=== PATIENT | male | born 1985 | race Caucasian/White ===

== ENCOUNTER 2021-05-25 20:19 | Emergency (ER) | payer OTHER ==
--- NOTE | 2021-05-25 20:23 | ERPHSYRPT ---
- History of Present Illness Time Seen by Provider: 05/25/21 20:23 Source: patient Exam Limitations: no limitations Physician History: This is a 35-year-old right-handed white male who accidentally cut himself with a knife while trying to cut a zip tie. Patient's last tetanus shot was in 2019. Timing/Duration: today Quality: painful Severity: mild Location: extremities (Right wrist dorsal aspect) Associated Symptoms: denies symptoms Allergies/Adverse Reactions: phenobarbital Allergy (Verified 05/25/21 20:23) Travel Risk - International Travel Have you traveled outside of the country in past 3 weeks: No - Coronavirus Screening Are you exhibiting any of the following symptoms?: No Close contact with a COVID-19 positive Pt in past 14-21 Days: No - Review of Systems Constitutional: No Symptoms Eyes: No Symptoms Ears, Nose, & Throat: No Symptoms Respiratory: No Symptoms Cardiac: No Symptoms Abdominal/Gastrointestinal: No Symptoms Genitourinary Symptoms: No Symptoms Musculoskeletal: No Symptoms Skin: Other (Laceration 1.5 cm right wrist dorsal aspect) Psychological: No Symptoms Endocrine: No Symptoms Hematologic/Lymphatic: No Symptoms, Easy Bruising Immunological/Allergic: No Symptoms All Other Systems: Reviewed and Negative - Past Medical History Pertinent Past Medical History: Yes - Past Surgical History Past Surgical History: Yes - Nursing Vital Signs Nursing Vital Signs: Initial Vital Signs Temperature 98.7 F 05/25/21 20:19 Pulse Rate 105 H 05/25/21 20:19 Respiratory Rate 20 05/25/21 20:19 Blood Pressure 122/87 05/25/21 20:19 O2 Sat by Pulse Oximetry 98 05/25/21 20:19 Pain Scale Pain Intensity 6 - Physical Exam General Appearance: no apparent distress, alert, anxiety, obese Eye Exam: PERRL/EOMI, eyes nml inspection Ears, Nose, Throat Exam: normal ENT inspection, moist mucous membranes Neck Exam: normal inspection, non-tender, supple, full range of motion Respiratory Exam: airway intact, No chest tenderness, No respiratory distress Gastrointestinal/Abdomen Exam: No tenderness Rectal Exam: not done Back Exam: normal inspection, normal range of motion, No CVA tenderness, No vertebral tenderness Extremity Exam: normal range of motion, pelvis stable, lacerations (1.5 cm axially oriented laceration right proximal wrist dorsal aspect. No active bleeding. Neurovascularly intact. No tendon involvement) Neurologic Exam: alert Skin Exam: laceration (See above extremity exam section) Lymphatic Exam: No adenopathy SpO2 Interpretation: normal O2 Delivery: Room Air Procedures - Laceration/Wound Repair Right Dorsal Wrist Time of Procedure: 20:45 Wound Location: Right, wrist Wound Length (cm): 1.5 Wound's Depth, Shape: superficial, linear Wound Explored: clean (Examination performed to the base in a bloodless field. No foreign body present) Irrigated: Yes Hibiclens Prep: Yes Wound Repaired With: [place] (3. Moncho used) Layer Closure?: No Progress: 05/25/21 20:53 Laceration repair site cleaned and dried. Thin layer of antibiotic ointment was placed overlying the laceration repair site. Bandage was placed over this. - Course Nursing assessment & vital signs reviewed: Yes - Progress Progress: improved Counseled pt/family regarding: diagnosis, need for follow-up - Departure Departure Disposition: Home Clinical Impression: Laceration of right wrist Condition: Stable Critical Care Time: No Referrals: NIR OSORIO [Primary Care Provider] - Follow up/PCP as directed Additional Instructions: Keep the laceration repair site clean and dry for 24 hours. After 24 hours, may remove the bandage and then wash daily with soap and water. Blot dry use a hairdryer. After washing, place a thin layer of antibiotic ointment of choice to the site and cover again with bandage. Use Tylenol and ibuprofen for pain control. Staple removal in 8 to 10 days. Prescriptions: Hydrocodone/APAP 5/325 [[place] 5/325 mg] 1 each PO Q8H PRN PRN #4 tablet MDD 3 PRN Reason: Pain
[2021-05-25] MEDS ORDERED: BACIGUENT PACKET ONE (20:48)
[2021-05-25] MEDS ORDERED: NORCO 5/325 MG PO ONE ×2 (20:58)
[2021-05-25] MEDS ORDERED: NORCO 5/325 MG ONE (21:00)
[2021-05-25 21:08] VITALS: BP 122/88; PULSE 93; O2SAT 97
== END 2021-05-25 21:15 | disposition home or self-care (01) ==
LOC: ED 20:19
DX: S61.511A Laceration without foreign body of right wrist, initial encounter (principal); W26.0XXA Contact with knife, initial encounter; Z79.891 Long term (current) use of opiate analgesic
CPT/HCPCS: 12001; 99283; A9270-GY

== ENCOUNTER 2021-06-27 22:29 | Emergency (ER) | payer OTHER ==
[2021-06-27] MEDS ORDERED: OXYCODONE-ACETAMINOPHEN 10-325 PO STA (23:00)
[2021-06-27] MEDS ORDERED: Augmentin 875-125 Tablet PO ONE (23:00)
[2021-06-27] MEDS ORDERED: Augmentin 875-125 Tablet ONE (23:04)
[2021-06-27] MEDS ORDERED: OXYCODONE-ACETAMINOPHEN 10-325 ONE (23:04)
--- NOTE | 2021-06-27 23:07 | ERPHSYRPT ---
- History of Present Illness Time Seen by Provider: 06/27/21 22:41 Source: patient Exam Limitations: no limitations Patient Subjective Stated Complaint: pt states he has had constant pain in his rt lower mouth for 5 days. Triage Nursing Assessment: pt alert and oriented, answers questions approp. pt ambulatory with steady gait noted. respirations nonlabored.broken tooth and poor dentition noted . Physician History: 35 years old with multiple patent lesions presented to the ER with 5-day history of increasing pain especially in the left lower jaw of moderate to severe intensity sharp nature, partial relief with [id number] medications. Patient has appointment with his dentist after tomorrow. No fever or chills reported. Timing/Duration: gradual onset, days (5) Severity: severe ENT Location: dental Prearrival Treatment: over the counter meds Associated Symptoms: facial pain/swelling, jaw pain, tooth pain Allergies/Adverse Reactions: phenobarbital Allergy (Verified 06/27/21 22:53) Hx Tetanus, Diphtheria Vaccination/Date Given: Yes Hx Influenza Vaccination/Date Given: No Hx Pneumococcal Vaccination/Date Given: No Immunizations Up to Date: Yes Travel Risk - International Travel Have you traveled outside of the country in past 3 weeks: No - Coronavirus Screening Are you exhibiting any of the following symptoms?: No Close contact with a COVID-19 positive Pt in past 14-21 Days: No - Vaccine Status Have you recieved a Covid-19 vaccination: No - Review of Systems Constitutional: No Symptoms Eyes: No Symptoms Ears, Nose, & Throat: Mouth Swelling Respiratory: No Symptoms Cardiac: No Symptoms Abdominal/Gastrointestinal: No Symptoms Musculoskeletal: No Symptoms Skin: No Symptoms Psychological: No Symptoms Endocrine: No Symptoms Hematologic/Lymphatic: No Symptoms - Past Medical History Pertinent Past Medical History: Yes Respiratory History: COPD, Sleep Apnea - Past Surgical History Past Surgical History: Yes - Social History Smoking Status: Current every day smoker How long have you smoked: 10 yrs Exposure to second hand smoke: No Drug Use: none Patient Lives Alone: No - Nursing Vital Signs Nursing Vital Signs: Initial Vital Signs Temperature 97.8 F 06/27/21 22:44 Pulse Rate 102 H 06/27/21 22:44 Respiratory Rate 16 06/27/21 22:44 Blood Pressure 166/105 06/27/21 22:44 O2 Sat by Pulse Oximetry 99 06/27/21 22:44 Pain Scale Pain Intensity 10 - Physical Exam General Appearance: no apparent distress, alert Eye Exam: bilateral eye: normal inspection, PERRL Ear Exam: bilateral ear: auricle normal, canal normal, TM normal Nasal Exam: normal inspection Throat Exam: normal, pharynx normal, dental tenderness (Left lower premolar and molar area with gingival swelling. Periodontal disease.) Neck Exam: normal inspection, non-tender, supple, full range of motion, trachea midline Cardiovascular/Respiratory Exam: normal breath sounds, regular rate/rhythm Neurologic Exam: alert, oriented x 3, cooperative, sustainability project coordinator II-XII nml as tested Skin Exam: normal color SpO2 Interpretation: normal SpO2: 99 O2 Delivery: Room Air Ordered Tests: Medication Summary Discontinued Medications Generic Name Dose Route Start Last Admin Trade Name Stefan PRN Reason Stop Dose Admin Amoxicillin/Clavulanate Potassium 875 mg 06/27/21 23:00 06/27/21 23:05 Amox Tr/Potassium Clavulanate 875 Mg Tablet PO 06/27/21 23:01 875 mg STAT ONE Administration Amoxicillin/Clavulanate Potassium Confirm 06/27/21 23:04 Amox Tr/Potassium Clavulanate 875 Mg Tablet Administered 06/27/21 23:05 Dose 875 mg .ROUTE .STK-MED ONE Oxycodone/Acetaminophen 1 tab 06/27/21 23:00 06/27/21 23:05 Oxycodone / Apap 10/325 Mg 1 Tablet PO 06/27/21 23:01 1 tab STAT STA Administration Oxycodone/Acetaminophen Confirm 06/27/21 23:04 Oxycodone / Apap 10/325 Mg 1 Tablet Administered 06/27/21 23:05 Dose 1 tab .ROUTE .STK-MED ONE Oxycodone/Acetaminophen 2 tab 06/27/21 23:11 06/27/21 23:33 Oxycodone Hcl/Apap 5 Mg/325 Mg Tablet PO 06/27/21 23:12 2 tab SENT HOME W/ PATIENT STA Administration Oxycodone/Acetaminophen Confirm 06/27/21 23:30 Oxycodone Hcl/Apap 5 Mg/325 Mg Tablet Administered 06/27/21 23:31 Dose 2 tab .ROUTE .STK-MED ONE - Progress Progress: improved Progress Note: 06/27/21 given pain medication and started on Augmentin. Outpatient dental follow-up recommended as scheduled day after tomorrow. Counseled pt/family regarding: diagnosis, need for follow-up - Departure Departure Disposition: Home Clinical Impression: Dental infection Condition: Stable Critical Care Time: No Referrals: DOCTOR,NO FAMILY [Primary Care Provider] - Follow up/PCP as directed Instructions: Tooth Abscess (DC), Dental Pain (DC) Additional Instructions: Keep appointment with your dentist tomorrow as scheduled. Take pain medications as needed. Return to ER for worsening pain, swelling, fever chills etc. Prescriptions: Amox Tr/Potass Clav. 875 mg [Augmentin 875-125 Tablet] 875 mg PO BID #14 tablet
[2021-06-27] MEDS ORDERED: PERCOCET TABLET 5/325MG PO STA (23:11)
[2021-06-27] MEDS ORDERED: PERCOCET TABLET 5/325MG ONE (23:30)
[2021-06-28] VITALS: BP 128/67; PULSE 100; O2SAT 98
== END 2021-06-27 23:58 | disposition home or self-care (01) ==
LOC: ED 22:29
DX: K04.7 Periapical abscess without sinus (principal); J44.9 Chronic obstructive pulmonary disease, unspecified; Z72.0 Tobacco use
CPT/HCPCS: 99283; A9270-GY

== ENCOUNTER 2022-09-27 13:43 | Emergency (ER) | payer OTHER ==
[2022-09-27] MEDS ORDERED: XYLOCAINE 1% HCL 20 ML MDV ONE ×2 (13:52→13:55)
[2022-09-27] MEDS ORDERED: XYLOCAINE 1% HCL 20 ML MDV IJ ONE (14:16)
[2022-09-27] MEDS ORDERED: BACIGUENT PACKET TP ONE (14:16)
[2022-09-27] MEDS ORDERED: BACIGUENT PACKET ONE (14:17)
[2022-09-27 14:19] VITALS: BP 116/81; PULSE 89; O2SAT 96
--- NOTE | 2022-09-27 14:22 | ERPHSYRPT ---
- History of Present Illness Time Seen by Provider: 09/27/22 13:55 Source: patient, family Exam Limitations: no limitations Patient Subjective Stated Complaint: Patient cut himself with a boxknife at home just prior to coming into the ER. Cut is to patient's left thumb. Triage Nursing Assessment: Patient arrived in ER ambulating without difficulties. No SOB. Alert and oriented. Ribbon tied around thumb with gauze. Gauze has a small amount of bright red blood on it. Gauze removed and area cleansed with sterile water and hibiclens. 3.2cm laceration/cut. Physician History: This is a right-handed 36-year-old white male patient who accidentally cut his left thumb with a razor. His gave additional history. Patient states his tetanus status is up-to-date. This occurred prior to arrival and there were [address]. Timing/Duration: today Quality: painful Severity: mild Location: hands (To moderate left hand distal thumb) Possible Causes: other (Accidental laceration) Associated Symptoms: denies symptoms Allergies/Adverse Reactions: phenobarbital Allergy (Verified 09/27/22 13:52) Home Medications: No Reportable Medications [No Reported Medications] 09/27/22 [History] Hx Tetanus, Diphtheria Vaccination/Date Given: Yes Hx Influenza Vaccination/Date Given: No Hx Pneumococcal Vaccination/Date Given: No Immunizations Up to Date: Yes Travel Risk - International Travel Have you traveled outside of the country in past 3 weeks: No - Coronavirus Screening Are you exhibiting any of the following symptoms?: No Close contact with a COVID-19 positive Pt in past 14-21 Days: No - Vaccine Status Have you recieved a Covid-19 vaccination: No - Review of Systems Constitutional: No Symptoms Eyes: No Symptoms Ears, Nose, & Throat: No Symptoms Respiratory: No Symptoms Cardiac: No Symptoms Abdominal/Gastrointestinal: No Symptoms Genitourinary Symptoms: No Symptoms Musculoskeletal: No Symptoms, Other (Left thumb neurovascularly intact, tendons intact) Skin: Other (Skin laceration distal left thumb) Neurological: No Symptoms Psychological: No Symptoms Endocrine: No Symptoms Hematologic/Lymphatic: No Symptoms Immunological/Allergic: No Symptoms All Other Systems: Reviewed and Negative - Past Medical History Pertinent Past Medical History: Yes Respiratory History: COPD, Sleep Apnea - Past Surgical History Past Surgical History: Yes - Social History Smoking Status: Current every day smoker How long have you smoked: 15 yrs Exposure to second hand smoke: No Drug Use: none Patient Lives Alone: No - Nursing Vital Signs Nursing Vital Signs: Initial Vital Signs Temperature 97.4 F 09/27/22 13:53 Respiratory Rate 20 09/27/22 13:53 Pain Scale Pain Intensity 7 - Physical Exam General Appearance: no apparent distress, alert, anxiety, obese Eye Exam: PERRL/EOMI, eyes nml inspection Ears, Nose, Throat Exam: normal ENT inspection, moist mucous membranes Neck Exam: normal inspection, non-tender, supple, full range of motion Respiratory Exam: airway intact, No chest tenderness, No respiratory distress Gastrointestinal/Abdomen Exam: No tenderness Rectal Exam: not done Back Exam: normal inspection, normal range of motion, No CVA tenderness, No vertebral tenderness Extremity Exam: normal range of motion, pelvis stable, lacerations (2 cm laceration distal left thumb. Mild oozing of venous skin edge blood from the s ite. Neurovascularly intact. Tendon is intact. No foreign body) Neurologic Exam: alert, oriented x 3, cooperative, automotive sales executive II-XII nml as tested, normal mood/affect, nml cerebellar function, nml station & gait, sensation nml Skin Exam: laceration (See above extremity exam section) Lymphatic Exam: No adenopathy SpO2 Interpretation: normal O2 Delivery: Room Air Procedures - Laceration/Wound Repair Left Distal Finger Time of Procedure: 14:00 Wound Location: Left, hand (Distal thumb) Wound Length (cm): 2 Wound's Depth, Shape: linear, into subcut Wound Explored: clean (No foreign body noted. Examination was performed and below this field to the base.) Irrigated: Yes Hibiclens Prep: Yes Anesthesia: 1% Lidocaine Volume Anesthetic (ccs): 3 Wound Repaired With: sutures Suture Size/Type: 4-0 Number of Sutures: 4 Layer Closure?: No Sterile Dressing Applied?: Yes - Course Nursing assessment & vital signs reviewed: Yes Ordered Tests: Medication Summary Discontinued Medications Generic Name Dose Route Start Last Admin Trade Name Freq PRN Reason Stop Dose Admin Lidocaine HCl Confirm 09/27/22 13:52 Lidocaine Hcl 1% 20 Ml Mdv 20 Ml Ml Administered 09/27/22 13:53 Dose 10 ml .ROUTE .[facility] ONE Lidocaine HCl Confirm 09/27/22 13:55 Lidocaine Hcl 1% 20 Ml Mdv 20 Ml Ml Administered 09/27/22 13:56 Dose 5 ml .ROUTE .[employer]-MED ONE - Progress Progress: improved Progress Note: 09/27/22 14:20 This patient's medical issue is 1 of low complexity. No radiographic studies or laboratory or evaluation was necessary. The patient is neurovascularly intact and the tendon function is intact. See procedure note. Patient is being disc harged to home with pressure dressing in place. Instructions are to keep the bandage in place for 24 hours. After 24 hours, remove dressing, wash the site daily thereafter blot dry use a hairdryer to dry the site and then a thin layer of antibiotic and read bandage each day. Sutures removal in 7 to 10 days. Tylenol and ibuprofen for pain control. Counseled pt/family regarding: diagnosis, need for follow-up Medical Desision Making - Independent Historian Additional History obtained from: Spouse - Discussion of managment Agreed on:: Treatment plan, need for follow-up - Risk of complications Minimal Risk: Minimal risk of morbidity - Departure Departure Disposition: Home Clinical Impression: Thumb laceration Condition: Stable Critical Care Time: No Referrals: DOCTOR,NO FAMILY [Primary Care Provider] - Follow up/PCP as directed Additional Instructions: Keep current pressure dressing in place until the evening of 09/28/2022. At that time you may remove the dressing and wash the site daily thereafter. After each washing, blot dry use a hairdryer to dry the repair line. Reapply thin layer of antibiotic ointment of choice. Cover the site with a bandage after each washing and drying and application of antibiotic ointment. Suture removal in 7 to 10 days. Use Tylenol and ibuprofen for pain control.
== END 2022-09-27 14:35 | disposition home or self-care (01) ==
LOC: ED 13:43
DX: S61.012A Laceration without foreign body of left thumb without damage to nail, initial encounter (principal); W26.0XXA Contact with knife, initial encounter; J44.9 Chronic obstructive pulmonary disease, unspecified; Z28.310 Unvaccinated for COVID-19; Z72.0 Tobacco use
CPT/HCPCS: 12001; 96372; 99283; A9270-GY

== ENCOUNTER 2023-03-11 00:27 | Emergency (ER) | payer MEDICAID, OTHER ==
[2023-03-11] MEDS ORDERED: TORAdol 30 mg Injection IM ONE (00:37)
[2023-03-11] MEDS ORDERED: Augmentin 875-125 Tablet PO ONE (00:41)
--- NOTE | 2023-03-11 00:43 | ERPHSYRPT ---
- History of Present Illness Time Seen by Provider: 03/11/23 00:33 Source: patient Exam Limitations: no limitations Physician History: 37-year-old male with history of bad dentition with caries and broken teeth with cavities presented in the ER with chief complaint of left upper lateral incisor area cavity with gingival swelling pain for the last 4 to 5 days. He has been using [id number] stuff including clove oil/ibuprofen with no significant relief. No fever or chills reported. Pain is more with swallowing and chewing food. Has appointment with dentist early next month. Allergies/Adverse Reactions: phenobarbital Allergy (Verified 03/11/23 00:30) Hx Tetanus, Diphtheria Vaccination/Date Given: Yes Hx Influenza Vaccination/Date Given: No Hx Pneumococcal Vaccination/Date Given: No Travel Risk - Vaccine Status Have you recieved a Covid-19 vaccination: No - Review of Systems Constitutional: No Symptoms Eyes: No Symptoms Ears, Nose, & Throat: Mouth Swelling, Loose Teeth Respiratory: No Symptoms Cardiac: No Symptoms Neurological: No Symptoms Endocrine: No Symptoms Hematologic/Lymphatic: No Symptoms - Past Medical History Pertinent Past Medical History: Yes Respiratory History: COPD, Sleep Apnea - Past Surgical History Past Surgical History: Yes - Social History Smoking Status: Current every day smoker How long have you smoked: 15 yrs Exposure to second hand smoke: No Drug Use: none Patient Lives Alone: No - Physical Exam General Appearance: no apparent distress, alert Eye Exam: bilateral eye: normal inspection, PERRL, EOMI Ear Exam: bilateral ear: auricle normal Nasal Exam: normal inspection Throat Exam: normal, pharynx normal, dental tenderness (Upper left lateral incisor broken with gingival swelling and tenderness. No fluctuation) Neck Exam: normal inspection, non-tender, supple, full range of motion Cardiovascular/Respiratory Exam: normal breath sounds, regular rate/rhythm Neurologic Exam: alert, oriented x 3, cooperative, playground attendant II-XII nml as tested Skin Exam: normal color SpO2 Interpretation: normal SpO2: 96 O2 Delivery: Room Air Ordered Tests: Medication Summary Discontinued Medications Generic Name Dose Route Start Last Admin Trade Name Freq PRN Reason Stop Dose Admin Ketorolac Tromethamine 30 mg 03/11/23 00:37 Ketorolac Tromethamine 30 Mg/Ml Inj IM 03/11/23 00:38 STAT ONE - Progress Progress: improved Progress Note: 03/11/23 01:10 37-year-old is evaluated for left upper lateral incisor pain with loosening and gingival swelling for the last 4 to 5 days with no significant improvement to [id number] pain medications. He is given Toradol for symptomatic relief. He has no fluctuation. Started on Augmentin. Outpatient follow-up recommended. Counseled pt/family regarding: diagnosis, need for follow-up - Departure Departure Disposition: Home Clinical Impression: Dental infection Condition: Stable Critical Care Time: No Referrals: DOCTOR,NO FAMILY [Primary Care Provider] - Follow up/PCP as directed Instructions: Tooth Decay, Adult (DC), Tooth Abscess (DC) Additional Instructions: Follow-up with your primary dentist for reevaluation. Take Tylenol/diclofenac as needed. Do not take ibuprofen/Aleve while taking diclofenac. Return to ER for intractable pain swelling/fever chills etc. Prescriptions: Amox Tr/Potass Clav. 875 mg [Augmentin 875-125 Tablet] 875 mg PO BID #14 tablet Diclofenac Sodium 50 mg PO TID PRN 7 Days #20 tab PRN Reason: Pain
[2023-03-11 00:44] VITALS: TEMP 97.3; O2SAT 96
[2023-03-11] MEDS ORDERED: Augmentin 875-125 Tablet ONE (00:44)
[2023-03-11] MEDS ORDERED: TORAdol 30 mg Injection ONE (00:44)
[2023-03-11 00:45] VITALS: BP 124/91; PULSE 94; RESP 20
== END 2023-03-11 01:11 | disposition home or self-care (01) ==
LOC: ED 00:27
DX: K04.7 Periapical abscess without sinus (principal); K08.89 Other specified disorders of teeth and supporting structures; Z28.310 Unvaccinated for COVID-19; Z72.0 Tobacco use
CPT/HCPCS: 96372; 99283; J1885; A9270-GY

== ENCOUNTER 2023-05-27 15:00 | Emergency (ER) | payer MEDICAID, OTHER ==
[2023-05-27 15:17] VITALS: TEMP 98
[2023-05-27] MEDS ORDERED: Sodium Chloride 0.9% 1000 ML 1,000 ML IV SCH (16:00)
--- NOTE | 2023-05-27 16:02 | ERPHSYRPT ---
- History of Present Illness Time Seen by Provider: 05/27/23 15:30 Source: patient Exam Limitations: no limitations Patient Subjective Stated Complaint: Pt states "12 days ago I started to have what felt like a jennifer horse in my right calf and I went to [place] 9 days ago and they did a bunch of tests and said nothing was there and gave me flexeril but it is worse and now my leg is swollen." Triage Nursing Assessment: Pt presented alert and oriented X 3, skin pwd. Pt ambulates with a limp . Pt right calf larger than left, CSM X 4. right lower extremity warm with pulse detected. Physician History: Patient is a 37-year-old male presents to our ED for evaluation of worsening pain to right leg. Patient states pain developed approximately 12 days ago. 9 days ago patient went to [facility]. Patient states they completed a complete workup. Patient was discharged on Flexeril. However patient states her symptoms have gotten progressively worse. He feels increasing pressure at his right lower leg. Patient feels the leg is warm. No trauma no fever. Patient states a right lower extremity ultrasound was negative at that time. Patient states otherwise healthy. He has no significant past medical history. Patient voices no other complaints or concerns at this time. Portions of this note were created with voice recognition technology. There may be grammatical, spelling, punctuation or sound alike errors Timing/Duration: day(s) (12 days ago) Severity: moderate Modifying Factors: Improves With: nothing Associated Symptoms: denies symptoms Allergies/Adverse Reactions: phenobarbital Allergy (Verified 03/11/23 00:30) Home Medications: No Reportable Medications [No Reported Medications] 05/27/23 [History] Hx Tetanus, Diphtheria Vaccination/Date Given: Yes Hx Influenza Vaccination/Date Given: No Hx Pneumococcal Vaccination/Date Given: No Immunizations Up to Date: No Travel Risk - International Travel Have you traveled outside of the country in past 3 weeks: No - Coronavirus Screening Are you exhibiting any of the following symptoms?: No Close contact with a COVID-19 positive Pt in past 14-21 Days: No - Vaccine Status Have you recieved a Covid-19 vaccination: No - Review of Systems Constitutional: No Symptoms, No Fever, No Chills Eyes: No Symptoms Ears, Nose, & Throat: No Symptoms Respiratory: No Symptoms, No Cough, No Dyspnea Cardiac: No Symptoms, No Chest Pain, No Edema, No Syncope Abdominal/Gastrointestinal: No Symptoms, No Abdominal Pain, No Nausea, No Vomiting, No Diarrhea Genitourinary Symptoms: No Symptoms, No Dysuria Musculoskeletal: No Symptoms, No Back Pain, No Neck Pain Skin: No Symptoms, No Rash Neurological: No Symptoms, No Dizziness, No Focal Weakness, No Sensory Changes Psychological: No Symptoms Endocrine: No Symptoms Hematologic/Lymphatic: No Symptoms All Other Systems: Reviewed and Negative - Past Medical History Pertinent Past Medical History: Yes Neurological History: No Pertinent History ENT History: No Pertinent History Cardiac History: No Pertinent History Respiratory History: COPD, Sleep Apnea Endocrine Medical History: No Pertinent History Musculoskeletal History: No Pertinent History GI Medical History: No Pertinent History History: No Pertinent History Psycho-Social History: Depression Male Reproductive Disorders: No Pertinent History - Past Surgical History Past Surgical History: Yes Neuro Surgical History: No Pertinent History Cardiac: No Pertinent History Respiratory: No Pertinent History Gastrointestinal: No Pertinent History Genitourinary: No Pertinent History Musculoskeletal: No Pertinent History Male Surgical History: No Pertinent History - Social History Smoking Status: Current every day smoker How long have you smoked: 15 yrs Exposure to second hand smoke: Yes Drug Use: none Patient Lives Alone: Yes - Nursing Vital Signs Nursing Vital Signs: Initial Vital Signs Temperature 98.0 F 05/27/23 15:12 Pulse Rate 114 H 05/27/23 15:12 Respiratory Rate 20 05/27/23 15:12 Blood Pressure 148/97 05/27/23 15:12 O2 Sat by Pulse Oximetry 100 05/27/23 15:12 Pain Scale Pain Intensity 8 - Physical Exam General Appearance: no apparent distress, alert Eye Exam: PERRL/EOMI, eyes nml inspection Ears, Nose, Throat Exam: normal ENT inspection, TMs normal, pharynx normal, moist mucous membranes Neck Exam: normal inspection, non-tender, supple, full range of motion Respiratory Exam: normal breath sounds, lungs clear, airway intact, No respiratory distress Cardiovascular Exam: regular rate/rhythm, normal heart sounds, normal peripheral pulses Gastrointestinal/Abdomen Exam: soft, normal bowel sounds, No tenderness, No mass Back Exam: normal inspection, normal range of motion, No CVA tenderness, No vertebral tenderness Extremity Exam: normal inspection, normal range of motion, pelvis stable Neurologic Exam: alert, oriented x 3, cooperative, normal mood/affect, sensation nml, No motor deficits Skin Exam: normal color, warm, dry, No rash Lymphatic Exam: No adenopathy SpO2 Interpretation: normal SpO2: 100 O2 Delivery: Room Air - Course Nursing assessment & vital signs reviewed: Yes - CT Exams Lower Extremity CT Interpretation: Discussed w/radiologist (Normal right lower extremity without contrast) - Radiology Ultrasound Exam Venous Lower Extremity Ultrasound: tele radiology report (Right lower extremity negative for DVT) Ordered Tests: Active Orders 24 hr Category Date Time Status Financial Analyst STAT Care 05/27/23 15:55 Active IV Insertion STAT Care 05/27/23 15:55 Active Pulse Oximetry (ED) STAT Care 05/27/23 15:55 Active LOWER EXTREMITY WITH CONTRAST [CT] Stat Exams 05/27/23 16:10 Taken VENOUS UNILAT/LIMITED EXTREMIT [US] Stat Exams 05/27/23 15:56 Completed BLOOD CULTURE Stat Lab 05/27/23 16:34 Received CBC W DIFF Stat Lab 05/27/23 16:20 Completed CK (IN-HOUSE) [CK-Creatinine Phosphokinase] Stat Lab 05/27/23 15:00 Completed CMP Stat Lab 05/27/23 16:20 Completed Lactic Acid Stat Lab 05/27/23 16:49 Completed UA W/RFX UR CULTURE Stat Lab 05/27/23 15:55 Ordered Medication Summary Generic Name Dose Route Start Last Admin Trade Name Freq PRN Reason Stop Dose Admin Sodium Chloride 1,000 mls @ 100 mls/hr 05/27/23 16:00 05/27/23 16:55 Sodium Chloride 0.9% 1000 Ml IV 06/26/23 15:59 100 mls/hr .Q10H VALENTIN Administration Discontinued Medications Generic Name Dose Route Start Last Admin Trade Name Freq PRN Reason Stop Dose Admin Morphine Sulfate 4 mg 05/27/23 17:01 05/27/23 17:11 Morphine Sulfate 4 Mg/Ml Injection IV 05/27/23 17:02 4 mg STAT ONE Administration Morphine Sulfate Confirm 05/27/23 17:06 Morphine Sulfate 4 Mg/Ml Injection Administered 05/27/23 17:07 Dose 4 mg .ROUTE .STK-MED ONE Ondansetron HCl 4 mg 05/27/23 17:01 05/27/23 17:13 Ondansetron Hcl 4 Mg/2 Ml Vial IV 05/27/23 17:02 4 mg STAT ONE Administration Ondansetron HCl Confirm 05/27/23 17:05 Ondansetron Hcl 4 Mg/2 Ml Vial Administered 05/27/23 17:06 Dose 4 mg .ROUTE .STK-MED ONE Lab/Rad Data: Laboratory Result Diagrams 05/27/23 16:20 05/27/23 16:20 Laboratory Results 05/27/23 05/27/23 05/27/23 Range/Units 16:49 16:20 16:20 WBC 6.3 (4.0-10.5) x10^3/uL RBC 4.77 (4.1-5.6) x10^6/uL Hgb 13.9 (12.5-18.0) g/dL Hct 42.1 (42-50) % MCV 88.3 (78-100) fL MCH 29.1 (26-32) pg MCHC 33.0 (32-36) g/dL RDW 12.2 (11.5-14.0) % Plt Count 244 (150-450) x10^3/uL MPV 9.9 (7.5-11.0) fL Gran % 49.3 (36.0-66.0) % Immature Gran % (Auto) 0.3 (0.00-0.4) % Nucleat RBC Rel Count 0.0 (0.00-0.1) % Eos # (Auto) 0.19 (0-0.5) x10^3/uL Immature Gran # (Auto) 0.02 (0.00-0.03) x10^3u/L Absolute Lymphs (auto) 2.23 (1.0-4.6) x10^3/uL Absolute Monos (auto) 0.71 (0.0-1.3) x10^3/uL Absolute Nucleated RBC 0.00 (0.00-0.01) x10^3u/L Lymphocytes % 35.5 (24.0-44.0) % Monocytes % 11.3 (0.0-12.0) % Eosinophils % 3.0 (0.00-5.0) % Basophils % 0.6 (0.0-0.4) % Absolute Granulocytes 3.09 (1.4-6.9) x10^3/uL Basophils # 0.04 (0-0.4) x10^3/uL Sodium 137 (137-145) mmol/L Potassium 3.8 (3.5-5.1) mmol/L Chloride 104 (98-107) mmol/L Carbon Dioxide 27 (22-30) mmol/L Anion Gap 10.3 (5-15) MEQ/L BUN 15 (9-20) mg/dL Creatinine 0.80 (0.66-1.25) mg/dL Estimated GFR 118.4 ML/MIN Glucose 87 (74-106) mg/dL Lactic Acid 1.1 (0.4-2.0) Calcium 8.7 (8.4-10.2) mg/dL Total Bilirubin 0.50 (0.2-1.3) mg/dL AST 31 (17-59) U/L ALT 38 (0-50) U/L Alkaline Phosphatase 61 (38-126) U/L Creatine Kinase (55-170) U/L Serum Total Protein 7.7 (6.3-8.2) g/dL Albumin 4.0 (3.5-5.0) g/dL 05/27/23 Range/Units 15:00 WBC (4.0-10.5) x10^3/uL RBC (4.1-5.6) x10^6/uL Hgb (12.5-18.0) g/dL Hct (42-50) % MCV (78-100) fL MCH (26-32) pg MCHC (32-36) g/dL RDW (11.5-14.0) % Plt Count (150-450) x10^3/uL MPV (7.5-11.0) fL Gran % (36.0-66.0) % Immature Gran % (Auto) (0.00-0.4) % Nucleat RBC Rel Count (0.00-0.1) % Eos # (Auto) (0-0.5) x10^3/uL Immature Gran # (Auto) (0.00-0.03) x10^3u/L Absolute Lymphs (auto) (1.0-4.6) x10^3/uL Absolute Monos (auto) (0.0-1.3) x10^3/uL Absolute Nucleated RBC (0.00-0.01) x10^3u/L Lymphocytes % (24.0-44.0) % Monocytes % (0.0-12.0) % Eosinophils % (0.00-5.0) % Basophils % (0.0-0.4) % Absolute Granulocytes (1.4-6.9) x10^3/uL Basophils # (0-0.4) x10^3/uL Sodium (137-145) mmol/L Potassium (3.5-5.1) mmol/L Chloride (98-107) mmol/L Carbon Dioxide (22-30) mmol/L Anion Gap (5-15) MEQ/L BUN (9-20) mg/dL Creatinine (0.66-1.25) mg/dL Estimated GFR ML/MIN Glucose (74-106) mg/dL Lactic Acid (0.4-2.0) Calcium (8.4-10.2) mg/dL Total Bilirubin (0.2-1.3) mg/dL AST (17-59) U/L ALT (0-50) U/L Alkaline Phosphatase (38-126) U/L Creatine Kinase 78 (55-170) U/L Serum Total Protein (6.3-8.2) g/dL Albumin (3.5-5.0) g/dL - Progress Progress: improved Progress Note: 37-year-old male presents to our ED with progressive right lower extremity pain. Patient was seen in outside hospital. Workup negative. Workup in our ED essentially unremarkable. At this point we are concerned for possible compartment syndrome. Although patient's involved extremities currently neurovascular tact distally. Compartments are soft cap refill less than 2 seconds. Patient will be transferred for orthopedic evaluation. Plan of care discussed with patient. Patient agrees to transfer to outside hospital for further evaluation and treatment. Portions of this note were created with voice recognition technology. There may be grammatical, spelling, punctuation or sound alike errors Complexity of problem addressed is moderate acute complicated No critical care time Complex of data reviewed and analyzed is extensive. Test ordered test reviewed. Results analyzed and correlated clinically. Management discussed with orthopedics who accepts transfer. Risk complication and or risk of morbidity/mortality of patient management is high. Patient will be transferred to higher level of care. Vital stable. Time spent to transfer patient is approximately 20 minutes. Plan of care established for shared decision making. No social determinants of health present impede follow-up. Portions of this note were created with voice recognition technology. There may be grammatical, spelling, punctuation or sound alike errors 05/27/23 18:[address] [facility] at 7:26 PM 05/27/23 19:27 Counseled pt/family regarding: lab results, diagnosis, rad results - Departure Departure Disposition: Transfer Clinical Impression: Compartment syndrome, Leg pain Condition: Stable Critical Care Time: No Referrals: JENNIFER CARBALLO [Primary Care Provider] - Follow up/PCP as directed
[2023-05-27 16:49] LABS: Absolute Neutrophil Ct (ANC) 3.09 x10^3/uL (1.4-6.9); BASOPHIL % 0.6 % (0.0-0.4); Basophil (Absolute #) 0.04 x10^3/uL (0-0.4); Eosinophil (Absolute #) 0.19 x10^3/uL (0-0.5); Hematocrit 42.1 % (42-50); Hemoglobin 13.9 g/dL (12.5-18.0); IMMATURE GRAN # 0.02 x10^3u/L (0.00-0.03); IMMATURE GRAN % 0.3 % (0.00-0.4); Lymphocyte (Absolute #) 2.23 x10^3/uL (1.0-4.6); Lymphocytes % 35.5 % (24.0-44.0); Mean Cell Volume 88.3 fL (78-100); Mean Corpuscular Hemoglobin 29.1 pg (26-32); Mean Platelet Volume 9.9 fL (7.5-11.0); Monocyte (Absolute #) 0.71 x10^3/uL (0.0-1.3); Monocytes % 11.3 % (0.0-12.0); Neutrophil % 49.3 % (36.0-66.0); Platelet Count 244 x10^3/uL (150-450); Red Blood Count 4.77 x10^6/uL (4.1-5.6); Red Cell Distribution Width 12.2 % (11.5-14.0); White Blood Count 6.3 x10^3/uL (4.0-10.5)
[2023-05-27] MEDS ORDERED: Sodium Chloride 0.9% 1000 ML 1,000 ML ONE (16:53)
[2023-05-27] MEDS ORDERED: Zofran 4 MG/2 ML VIAL IV ONE (17:01)
[2023-05-27] MEDS ORDERED: MORPHINE SULFATE 4 MG INJ IV ONE (17:01)
[2023-05-27 17:05] LABS: ANION GAP 10.3 MEQ/L (5-15); BILIRUBIN,TOTAL 0.5 mg/dL (0.2-1.3); Calcium 8.7 mg/dL (8.4-10.2); Creatinine 1 0.8 mg/dL (0.66-1.25); EST GLOMERULAR FILTRATION RATE 118.4 ML/MIN; Potassium 3.8 mmol/L (3.5-5.1); Total Protein 7.7 g/dL (6.3-8.2)
[2023-05-27] MEDS ORDERED: Zofran 4 MG/2 ML VIAL ONE (17:05)
[2023-05-27] MEDS ORDERED: MORPHINE SULFATE 4 MG INJ ONE (17:06)
--- NOTE | 2023-05-27 17:22 | XRAY ---
Indication: Pain. Two-dimensional sonogram and color Doppler imaging of the major venous vessels of the right leg performed. Comparison: None No thrombus seen in the examined deep venous vessels of the right leg including greater saphenous vein. Veins demonstrate normal compressibility. Venous waveforms are normal with and without augmentation. Impression: Right leg negative for DVT.
[2023-05-27 19:00] VITALS: O2SAT 100
[2023-05-27 19:34] VITALS: BP 151/99; PULSE 112; RESP 18
--- NOTE | 2023-05-28 08:38 | XRAY ---
Indication: Right tibia fibula swelling. Abscess. Multiple contiguous axial images obtained through the right lower leg using 80 cc Isovue 370 contrast. Comparison: None Lower leg demonstrates mild subcutaneous soft tissue swelling without focal solid/cystic mass or abnormal fluid collection. Deep musculature unremarkable. Major arteries are normal in course and caliber. Popliteal vein demonstrates nonoccluding thrombi. No acute fracture, dislocation, or suspicious bony lesions. Impression: Nonoccluding DVT popliteal vein. Comment: DVT not reported on initial preliminary interpretation. Telephone report was given to Dr. Webb at 0833 hrs. on May 28, 2023.
== END 2023-05-27 20:01 | disposition short-term general hospital (02) ==
LOC: ED 15:00
DX: T79.A21A Traumatic compartment syndrome of right lower extremity, initial encounter (principal); M79.604 Pain in right leg; I82.431 Acute embolism and thrombosis of right popliteal vein; Z28.310 Unvaccinated for COVID-19; Z72.0 Tobacco use
CPT/HCPCS: 36000; 36415; 73701; 80053; 82550; 83605; 85025; 87040; 93041; 93971; 94760; 96374; 96375; 99285; J2270; J2405

== ENCOUNTER 2023-12-20 12:07 | Emergency (ER) | payer OTHER ==
[2023-12-20 12:23] VITALS: RESP 18; TEMP 98; O2SAT 97
--- NOTE | 2023-12-20 12:37 | ERPHSYRPT ---
- History of Present Illness Time Seen by Provider: 12/20/23 12:32 Source: patient Exam Limitations: no limitations Patient Subjective Stated Complaint: C/O rash for a few days. Indicates is started on his left leg and he scratched it and it spread. Denies pain but c/o itching. Triage Nursing Assessment: Patient ambulated back to ER without difficulties. He is alert and oriented. Patient noted to have a red, raised rash to BUE, BLE, chest. Some areas to LLE noted to have pinpoint pustules. Physician History: 38yo m presents via private vehicle for rash on b/l UE and LEs. Pt states he was walking through tall weeds through a wooded area yesterday, developed itchy rash w/ some raised papules involving ankles, shins, forearms b/l. Pt states some of the lesions have turned to small blisters and have had some serous drainage. Pt denies any fevers, throat swelling, sob, cp. Timing/Duration: yesterday Quality: itchy Severity: moderate Location: extremities Possible Causes: exposure to allergen, poison ember Allergies/Adverse Reactions: phenobarbital Allergy (Verified 12/20/23 12:13) Hx Tetanus, Diphtheria Vaccination/Date Given: Yes Hx Influenza Vaccination/Date Given: No Hx Pneumococcal Vaccination/Date Given: No Immunizations Up to Date: Yes Travel Risk - International Travel Have you traveled outside of the country in past 3 weeks: No - Emerging Infectious Disease Are you exhibiting symptoms associated with any current EIDs: No - Review of Systems Constitutional: No Symptoms Respiratory: No Symptoms Cardiac: No Symptoms Abdominal/Gastrointestinal: No Symptoms Skin: Pruritis, Rash - Past Medical History Pertinent Past Medical History: Yes Neurological History: No Pertinent History ENT History: No Pertinent History Cardiac History: No Pertinent History Respiratory History: COPD, Sleep Apnea Endocrine Medical History: No Pertinent History Musculoskeletal History: No Pertinent History GI Medical History: No Pertinent History History: No Pertinent History Psycho-Social History: Depression Male Reproductive Disorders: No Pertinent History Other Medical History: dvt - Past Surgical History Past Surgical History: Yes Neuro Surgical History: No Pertinent History Cardiac: No Pertinent History Respiratory: No Pertinent History Gastrointestinal: No Pertinent History Genitourinary: No Pertinent History Musculoskeletal: No Pertinent History Male Surgical History: No Pertinent History - Social History Smoking Status: Current every day smoker How long have you smoked: 20 years Exposure to second hand smoke: Yes Drug Use: none Patient Lives Alone: Yes - Social Determinants of Health Will the patient participate in the screening: Yes Do you worry about a steady place to live?: No Do you have any problems with any of the following?: No known problems In the past 12 months,have you had to go without utilities?: No Transportation Issues: No Has anyone in your support network made you feel unsafe?: No Have you or anyone in your house had to go without enough: No - Nursing Vital Signs Nursing Vital Signs: Initial Vital Signs Temperature 98 F 12/20/23 12:14 Pulse Rate 104 H 12/20/23 12:14 Respiratory Rate 18 12/20/23 12:14 Blood Pressure 122/94 12/20/23 12:14 O2 Sat by Pulse Oximetry 97 12/20/23 12:14 Pain Scale Pain Intensity 0 - Physical Exam General Appearance: no apparent distress, alert Respiratory Exam: normal breath sounds, lungs clear, airway intact, No chest tenderness, No respiratory distress Cardiovascular Exam: regular rate/rhythm, normal heart sounds Skin Exam: normal color, warm, rash (small, raised, bulous areas of irritation on shins, forearms, posterior hands b/l w/ minimal serous drainage ) SpO2 Interpretation: normal SpO2: 97 O2 Delivery: Room Air Ordered Tests: Medication Summary Discontinued Medications Generic Name Dose Route Start Last Admin Trade Name Stefan PRN Reason Stop Dose Admin Triamcinolone Acetonide 10 mg 12/20/23 12:38 Triamcinolone Acetonide 50 Mg/5 Ml IM 12/20/23 12:39 1XONLY ONE Triamcinolone Acetonide 40 mg 12/20/23 12:42 12/20/23 12:51 Triamcinolone Acetonide 40 Mg/Ml Ml IM 12/20/23 12:43 40 mg STAT ONE Administration Triamcinolone Acetonide Confirm 12/20/23 12:50 Triamcinolone Acetonide 40 Mg/Ml Ml Administered 12/20/23 12:51 Dose 40 mg .ROUTE .STK-MED ONE - Progress Progress: unchanged, improved Progress Note: 12/20/23 12:40 given kennalog injection, prescribed hydrocortisone 2.5% cream to be used once daily on effected areas plan to dc home return to ED if: develop swelling of the face or eyes, develop shortness of breath, develop fevers that do not resolve w/ tylenol 12/20/23 12:43 Medical Desision Making - Risk of complications Minimal Risk: Minimal risk of morbidity - Departure Departure Disposition: Home Clinical Impression: Contact dermatitis Qualifiers: Contact dermatitis type: irritant Contact dermatitis trigger: non-food plants Qualified Code(s): L24.7 - Irritant contact dermatitis due to plants, except food Condition: Stable Critical Care Time: No Referrals: JENNIFER CARBALLO [Primary Care Provider] - Follow up/PCP as directed Instructions: Contact dermatitis, Skin Rash ED Additional Instructions: given kennalog injection, prescribed hydrocortisone 2.5% cream to be used once daily on effected areas plan to dc home return to ED if: develop swelling of the face or eyes, develop shortness of breath, develop fevers that do not resolve w/ tylenol Prescriptions: Hydrocortisone 2.5% 30 gm [Anusol-Hc 2.5% Cream 30 gm] 30 gm TP DAILY 10 Days #1 [facility]
[2023-12-20] MEDS ORDERED: Kenalog-10 MG/1 ML 10 ML VIAL IM ONE (12:38)
[2023-12-20] MEDS ORDERED: Kenalog-40 ONE (12:50)
[2023-12-20] MEDS: Kenalog-40 IM ONE (12:51)
[2023-12-20 13:00] VITALS: BP 123/81; PULSE 90
== END 2023-12-20 13:01 | disposition home or self-care (01) ==
LOC: ED 12:07
DX: L24.7 Irritant contact dermatitis due to plants, except food (principal); Z72.0 Tobacco use
CPT/HCPCS: 96372; 99283; J3301

== ENCOUNTER 2024-01-07 16:58 | Emergency (ER) | payer OTHER ==
[2024-01-07 17:46] VITALS: PULSE 95; TEMP 98.2
--- NOTE | 2024-01-07 18:01 | ERPHSYRPT ---
- History of Present Illness Time Seen by Provider: 01/07/24 17:51 Source: patient Exam Limitations: no limitations Patient Subjective Stated Complaint: Pt brought self to ED complaining of a spider bite. Rates pain A 7/10 with movement. Triage Nursing Assessment: Pt brought self to ED complaining of a spider bite. Rates pain A 7/10 with movement. Stated symptoms started 7 days ago. hypertensive, tachycardic, skin w/n/d, appears to have 2 areas of bites, pulses normal, gait steady, pt doesn't appear to be in distress Physician History: Pt states he had insect bites on his right flank and they became red and tender 4 days ago; denies fever, chills, shortness of air, chest pain, nausea, vomiting. Allergies/Adverse Reactions: phenobarbital Allergy (Verified 01/07/24 17:46) Hx Tetanus, Diphtheria Vaccination/Date Given: Yes Hx Influenza Vaccination/Date Given: No Hx Pneumococcal Vaccination/Date Given: No Travel Risk - International Travel Have you traveled outside of the country in past 3 weeks: No - Emerging Infectious Disease Are you exhibiting symptoms associated with any current EIDs: No - Review of Systems Constitutional: No Fever, No Chills Respiratory: No Dyspnea Cardiac: No Chest Pain Abdominal/Gastrointestinal: No Nausea, No Vomiting Skin: Cellulitis - Past Medical History Pertinent Past Medical History: Yes Neurological History: No Pertinent History ENT History: No Pertinent History Cardiac History: No Pertinent History Respiratory History: COPD, Sleep Apnea Endocrine Medical History: No Pertinent History Musculoskeletal History: No Pertinent History GI Medical History: No Pertinent History History: No Pertinent History Psycho-Social History: Depression Male Reproductive Disorders: No Pertinent History Other Medical History: dvt - Past Surgical History Past Surgical History: Yes Neuro Surgical History: No Pertinent History Cardiac: No Pertinent History Respiratory: No Pertinent History Gastrointestinal: No Pertinent History Genitourinary: No Pertinent History Musculoskeletal: No Pertinent History Male Surgical History: No Pertinent History - Social History Smoking Status: Current every day smoker How long have you smoked: 20 years Exposure to second hand smoke: Yes Drug Use: none Patient Lives Alone: Yes - Social Determinants of Health Will the patient participate in the screening: Yes Do you worry about a steady place to live?: No Do you have any problems with any of the following?: No known problems In the past 12 months,have you had to go without utilities?: No Transportation Issues: No Has anyone in your support network made you feel unsafe?: No Have you or anyone in your house had to go without enough: No - Nursing Vital Signs Nursing Vital Signs: Initial Vital Signs Temperature 98.2 F 01/07/24 17:32 Pulse Rate 95 H 01/07/24 17:32 Blood Pressure 150/93 01/07/24 17:32 Pain Scale Pain Intensity 7 - Physical Exam General Appearance: alert Eye Exam: PERRL/EOMI Ears, Nose, Throat Exam: TMs normal, pharynx normal, moist mucous membranes Neck Exam: normal inspection Respiratory Exam: lungs clear Cardiovascular Exam: normal heart sounds Gastrointestinal/Abdomen Exam: normal bowel sounds Extremity Exam: No pedal edema Neurologic Exam: alert, cooperative Skin Exam: other (mild erythema, warmth and tenderness over insect bites on right flank) - Course Nursing assessment & vital signs reviewed: Yes - Progress Counseled pt/family regarding: diagnosis, need for follow-up - Departure Departure Disposition: Home Clinical Impression: cellulitis of right flank Condition: Stable Critical Care Time: No Referrals: JENNIFER CARBALLO [Primary Care Provider] - Follow up/PCP as directed Instructions: Cellulitis (Skin Infection), Adult ED Additional Instructions: Follow up with private doctor tomorrow. Prescriptions: clindamycin HCL [Clindamycin HCl] 300 mg PO Q6H #40 cap
[2024-01-07 18:07] VITALS: BP 137/93; O2SAT 97
[2024-01-07] MEDS ORDERED: CLEOCIN 150 MG CAPSULE ONE ×2 (18:10→18:11)
[2024-01-07] MEDS: CLEOCIN 150 MG CAPSULE PO ONE (18:12)
== END 2024-01-07 18:23 | disposition home or self-care (01) ==
LOC: ED 16:58
DX: L03.311 Cellulitis of abdominal wall (principal); Z79.899 Other long term (current) drug therapy; Z72.0 Tobacco use
CPT/HCPCS: 99282; A9270-GY